=== PATIENT | female | born 1985 | race Caucasian/White ===

== ENCOUNTER 2017-10-25 20:52 | Emergency (ER) | payer OTHER ==
[2017-10-25 20:56] VITALS: BP 139/79; PULSE 78; RESP 20; TEMP 98.6; O2SAT 98
[2017-10-25] MEDS ORDERED: ZOLO100T PO (21:13)
[2017-10-25] MEDS ORDERED: ARIP2 PO (21:13)
[2017-10-25] MEDS ORDERED: NORE1TAB73 PO (21:13)
[2017-10-25] MEDS ORDERED: CEPH-460 PO (21:34)
--- NOTE | 2017-10-25 21:34 | PD ---
HPI Chief Complaint: Skin Problem Time Seen by Provider: 21:21 Travel History International Travel<30 days: No Contact w/Intl Traveler<30days: No Traveled to known affect area: No History of Present Illness HPI 32yo F with no PMH presents to the ED with c/o redness and pain in right humerus for a few days. Denies any trauma, fall, fever, focal weakness or numbness, chest pain, sob, n/v, abdominal pain. Pt did not take anything for pain at home. PFSH Past Medical History Depression: Yes Diminished Hearing: No Immunizations Current: Yes Tetanus Vaccination: Unknown Influenza Vaccination: Yes ?: Not Past Surgical History Tonsillectomy: Yes Social History Alcohol Use: No Tobacco Use: No Substance Use: No Allergies-Medications (Allergen,Severity, Reaction): Coded Allergies: No Known Allergies (Verified Allergy, Unknown, 10/25/17) Reported Meds & Prescriptions Reported Meds & Active Scripts Active Reported Blisovi 24 Fe 08/23 (Norethindrone-Ethinyl Estradiol-Fe) 1-20 Mg-Mcg Tab 1 Tab PO DAILY Abilify (Aripiprazole) 2 Mg Tab 2 Mg PO DAILY Zoloft (Sertraline HCl) 100 Mg Tab 100 Mg PO DAILY Review of Systems Except as stated in HPI: all other systems reviewed are Neg Physical Exam Narrative GENERAL: 32yo F not in distress. SKIN: Focused skin assessment warm/dry. HEAD: Atraumatic. Normocephalic. EYES: Pupils equal and round. No scleral icterus. No injection or drainage. ENT: No nasal bleeding or discharge. Mucous membranes pink and moist. NECK: Trachea midline. No JVD. CARDIOVASCULAR: Regular rate and rhythm. No murmur appreciated. RESPIRATORY: No accessory muscle use. Clear to auscultation. Breath sounds equal bilaterally. GASTROINTESTINAL: Abdomen soft, non-tender, nondistended. MUSCULOSKELETAL: RUE: +Mild erythema 3cm by 6cm mid humerus tender to palpation. Distal pulses intact. Sensation intact. FROM in right shoulder and elbow. NEUROLOGICAL: Awake and alert. No obvious cranial nerve deficits. Motor grossly within normal limits. Normal speech. PSYCHIATRIC: Appropriate mood and affect; insight and judgment normal. Data Data Last Documented VS Vital Signs Date Time Temp Pulse Resp B/P (MAP) Pulse Ox O2 Delivery O2 Flow Rate FiO2 10/25/17 20:56 98.6 78 20 139/79 (99) 98 MDM Medical Decision Making Medical Screen Exam Complete: Yes Emergency Medical Condition: Yes Differential Diagnosis Cellulitis Narrative Course 32yo F with an area of pain and redness in right humerus. Pt denies any trauma. Will cover for cellulitis. She is well appearing and has no other complaints. Pt given ibuprofen and keflex. Return precautions given. Diagnosis Primary Impression: Cellulitis Qualified Codes: L03.113 - Cellulitis of right upper limb Patient Instructions: General Instructions Departure Forms: Tests/Procedures Additional Instructions: Please follow up with your primary care physician in 3-7 days. Return to the ED if symptoms worsen and do not improve in 2 days. Med/Other Pt SpecificInfo: Prescription(s) given Scripts Cephalexin (Keflex) 500 Mg Cap 500 MG PO Q12H for Infection for 7 Days, #14 CAP 0 Refills Prov: Leidy Reid DO 10/25/17 Disposition: 01 DISCHARGE HOME Condition: Stable Leidy Reid DO Oct 25, 2017 21:34
[2017-10-25] MEDS ORDERED: CEPHALEXIN MONOHYDRATE 500 MG CAP PO ONE (21:45)
[2017-10-25] MEDS ORDERED: IBUPROFEN 600 MG TAB PO ONE (21:45)
== END 2017-10-25 21:48 | disposition home or self-care (01) ==
LOC: PHEFT 20:52
DX: L03.113 Cellulitis of right upper limb (principal); F32.9 Major depressive disorder, single episode, unspecified
CPT/HCPCS: 99283